=== PATIENT | female | born 1965 | race Two or more races ===

== ENCOUNTER 2018-08-11 00:45 | Emergency (ER) | payer OTHER ==
[~2018-08-11] VITALS: Ht 160 cm; Wt 102.1 kg
[2018-08-11] MEDS ORDERED: METOPROLOL ER-1 EACH (00:54)
[2018-08-11] MEDS ORDERED: VISTARIL50 MG PO (05:21)
[2018-08-11] MEDS ORDERED: PROPRANOLOL HCL10 MG PO (05:21)
== END 2018-08-11 06:03 | disposition home or self-care (01) ==
LOC: ER 00:45
DX: E07.89 Other specified disorders of thyroid (principal); R00.2 Palpitations; F06.4 Anxiety disorder due to known physiological condition